=== PATIENT | male | born 1965 | race Caucasian/White ===

== ENCOUNTER 2016-08-30 01:07 | Emergency (ER) | payer SELFPAY ==
[~2016-08-30] VITALS: Ht 167.6 cm; Wt 96.4 kg
[2016-08-30 01:24] VITALS: BP 155/97; PULSE 64; RESP 20; O2SAT 99
--- NOTE | 2016-08-30 01:41 | ED.REPORT ---
HPI-Headache Date of Service Aug 30, 2016 ED Provider: Tirstan Bullock MD A 50 year old male with a distant history of migraines presents to the ED complaining of a severe headache. The headache began suddenly 4.5 hours ago, and is described as "pounding" and the worst headache of his life. The pt also admits to mild neck stiffness, dizziness and photophobia but denies trauma, visual changes, speech changes, numbness, tingling or weakness. Nursing Notes Stated Complaint: MIGRAINE,THROWING UP Chief Complaint: Headache Nursing Notes Reviewed: Yes Allergies: Coded Allergies: codeine (Verified Allergy, Intermediate, gets really ill, 08/30/16) General Time Seen by MD: 01:32 Chief Complaint Worst headache of life Hx Obtained From: Patient Arrived By: Walk-in Sudden in Onset?: Yes Onset Occurred: 5 - 8 hours ago Symptom Duration: Since onset Recent Healthcare: No recent doctor visit, No recent hospitalization Similar Sx Previous: No Past Medical History Past Medical History distant history of migraines Past Surgical History none reported Smoking History Unknown if Ever Smoker Social History Other Social History: Good social support Ambulatory Status Independent Review of Systems Review of Systems Note: mild neck stiffness denies visual changes denies speech changes denies tingling Constitutional: Denies: Weakness - generalized Eyes: Reports: Photophobia Musculoskeletal: Denies: Back pain Skin: Denies Rash Neurologic: Reports: Dizziness, Headache, Denies: Numbness Complete sys rev & neg: except as marked. Physical Exam Initial Vital Signs Vital Signs (First) Date Time Temp Pulse Resp B/P Pulse Ox O2 Delivery O2 Flow Rate FiO2 08/30/16 01:24 36.0 64 20 155/97 99 Room Air Initial VS: Reviewed General/Constitutional: Awake, Alert Head / Eyes: Atraumatic, Normocephalic, PERRL, EOMI photophobic Neck: Atraumatic, Supple, Full range of motion Neurologic: Oriented X3, Speech NL, No motor deficits, No sensory deficits ENT: Atraumatic, Airway patent, Mucous membranes moist Respiratory / Chest: Atraumatic, Breath sounds NL, Breath sounds = bilat, No respiratory distress Cardiovascular: Heart rate NL, Regular rhythm, Heart sounds NL Abdomen: Atraumatic, Soft, Non-tender Skin: Atraumatic, Color NL, No rash, Warm, Dry Psychiatric: Affect NL, Mood NL Back: Atraumatic, Full range of motion Upper Extremity / MS: Atraumatic, Full range of motion Lower Extremity / Pelvis / MS: Atraumatic, Full range of motion Interpretation & Diagnostics CT Head Interpretation CONCLUSION: No acute intracranial findings. Interpretation / Wet Read by: Interpret - Radiologist Re-Eval/Medical Decision Med Decision/Clinical Course 50-year-old with a distant history of migraine presents with a headache that is characterized by fairly abrupt onset and increased intensity far beyond what he usually experiences. Fluids, Toradol and ondansetron were helpful. Because of his abrupt onset and severity CT scan was performed which was negative. I further discussed the possibility of having a sentinel bleed that is not picked up by the CT. The patient elected to not have an LP at this time. He is driving to [place] this morning. He understands the need for going to an ER in route if he has problems. Re-Evaluation/Progress : Time of Eval: 03:43 )( Patient Status: Condition improved Re-Evaluation/Progress Note: Pt rechecked, who is sleeping but easily woken. He no longer has a headache and his neck is supple and nontender. The risks and benefits of LP to rule out sentinel bleed are discussed, and the pt elects not to have an LP at this time. The diagnosis and plan for discharge are discussed. The pt understands and agrees with the plan. All questions are addressed at this time. Counseled Regarding: Diagnosis, Lab results, Need for follow-up, When/why to return to ED Discharge & Departure Impression: Primary Impression: Migraine Migraine type: without aura Status migrainosus presence: without status migrainosus Intractability: intractable Qualified Code: G43.019 - Migraine without aura, intractable, without status migrainosus Disposition: Home Discharge Condition All VS Reviewed: Yes Condition: Stable Patient Instructions: Migraine Headache (ED) Additional Instructions: Your headache is bothersome because of its sudden onset and intensity. It is reassuring that the CT scan is normal, and the your headache was completely relieved with minimal pain medication. In this situation we recommend lumbar puncture to make sure that there was not any bleeding into the area around the brain. You have elected not to have that test done. If you have further problems, please return here [facility] for further evaluation and treatment. Teacher blood pressure rechecked over a period of weeks to see if it remains elevated. Referrals: [facility] [place] Attestation Portions of this note were transcribed by Manuel Linares. I, Dr. Bullock personally performed the history, physical exam and medical decision-making; I reviewed and confirmed the accuracy of the information in the transcribed note. Signed by: Di Downing, 08/30/2016 and 0411. copies to: [facility] Tristan Bullock MD Aug 30, 2016 01:41 MANUEL LINARES Aug 30, 2016 01:50
[2016-08-30] MEDS ORDERED: 0.9% Sodium Chloride 1,000 ML IV ONE (01:47)
[2016-08-30] MEDS ORDERED: Ondansetron 2 mg/mL 2 mL Inj IVPUSH ONE (01:50)
[2016-08-30] MEDS ORDERED: Ketorolac 15 mg/mL Inj IVPUSH ONE (01:50)
[2016-08-30 04:12] VITALS: BP 136/84; PULSE 66; RESP 16; O2SAT 99
--- NOTE | 2016-08-30 11:03 | DRSVH ---
PROCEDURE: CT BRAIN WITHOUT CONTRAST ([id number]) INDICATIONS: sudden onset of worst headache of life TECHNIQUE: Noncontrast 4.5 mm thick angled axial sections acquired from the foramen magnum to the vertex, with c oronal reformats. COMPARISON: None. FINDINGS: Image quality: Excellent. CSF spaces: Basal cisterns are patent. No extra-axial fluid collections. Ventricles are normal in size and shape. Mild possibly artifactual asymmetry in the density of the internal carotid arteries right greater than left (se 4 im 18). Brain: No midline shift. No intracranial masses or hemorrhage. Cooley-white matter interface is norm al. Skull and face: Calvarium and visualized facial bones are intact, without suspicious lesions. Sinuses: Visualized sinuses and mastoids are clear. IMPRESSION: 1. Mild asymmetry in density of the distal internal carotid arteries is likely due to artifact. The p atient had no clinical symptoms of stroke. If symptoms of stroke developed recommend an MRI and MRA o f the head. Findings discussed by telephone ([phone]) with Dr. Ortiz at 8 AM on 08/30/2016. 2. There is no CT evidence of acute cranial pathology. Dictated by: Ramy Farooq M.D. on 08/30/2016 at 8:09 Approved by: Ramy Farooq M.D. on 08/30/2016 at 8:16
== END 2016-08-30 04:13 | disposition home or self-care (01) ==
LOC: SED 01:07
DX: G43.019 Migraine without aura, intractable, without status migrainosus (principal); Z88.5 Allergy status to narcotic agent
CPT/HCPCS: 70450; 96361; 96374; 96375; 99284; J1885; J2405; J7030